=== PATIENT | female | born 2000 | race Hispanic/Latino ===

== ENCOUNTER 2023-07-23 15:02 | Emergency (ER) | payer BC ==
[~2023-07-23] VITALS: Ht 149.9 cm; Wt 60.8 kg
[2023-07-23 15:44] VITALS: BP 128/78; PULSE 99; RESP 18
== END 2023-07-23 19:38 | disposition left against medical advice (07) ==
LOC: EDH 15:02
DX: R51.9 Headache, unspecified (principal); Z53.21 Procedure and treatment not carried out due to patient leaving prior to being seen by health care provider